=== PATIENT | male | born 1990 | race Caucasian/White ===

== ENCOUNTER 2020-05-09 11:15 | Emergency (ER) | payer BC, SELFPAY ==
[2020-05-09 11:34] VITALS: BP 142/86; PULSE 82; RESP 16; TEMP 37; O2SAT 96; BMI 32.7
--- NOTE | 2020-05-09 12:11 | ED.URI ---
HPI - URI/Sore Throat General Chief Complaint: Upper Respiratory Symptoms <Jona Christensen NP - Last Filed: 05/19/20 20:37> Stated Complaint: covid symptoms <Jona Christensen NP - Last Filed: 05/19/20 20:37> Time Seen by Provider: 05/09/20 12:11 <Jona Christensen NP - Last Filed: 05/19/20 20:37> Source: patient <Jona Christensen NP - Last Filed: 05/19/20 20:37> Mode of arrival: ambulatory <Jona Christensen NP - Last Filed: 05/19/20 20:37> Limitations: no limitations <Jona Christensen NP - Last Filed: 05/19/20 20:37> History of Present Illness HPI Narrative: Here with rhino/congestion multiple family members with similar symptoms he is here visiting family from [place] requesting COVID test. No chest pain or shortness of breath. No fever. No GI symptoms. <Jona Christensen NP - Last Filed: 05/19/20 20:37> MD elicited complaint: nasal congestion <Jona Christensen NP - Last Filed: 05/19/20 20:37> Onset (ago): day(s) <Jona Christensen NP - Last Filed: 05/19/20 20:37> Severity: mild <Jona Christensen NP - Last Filed: 05/19/20 20:37> Able to tolerate fluids by mouth: Yes <Jona Christensen NP - Last Filed: 05/19/20 20:37> Exacerbating factors: nothing <Jona Christensen NP - Last Filed: 05/19/20 20:37> Relieving factors: nothing <Jona Christensen NP - Last Filed: 05/19/20 20:37> Context: sick contacts <Jona Christensen NP - Last Filed: 05/19/20 20:37> Treatments prior to arrival: none <Jona Christensen NP - Last Filed: 05/19/20 20:37> Related Data Home Medications: Previous Rx's Medication Instructions Recorded ibuprofen 600 mg PO Q6H PRN #20 tab 05/13/20 loperamide [Imodium A-D] 2 mg PO Q4H PRN #14 cap 05/13/20 ondansetron HCl [Zofran] 4 mg PO Q6H PRN #10 tab 05/13/20 <Jona Christensen NP - Last Filed: 05/19/20 20:37> Allergies/Adverse Reactions: Allergies Allergy/AdvReac Type Severity Reaction Status Date / Time No Known Allergies Allergy Verified 05/09/20 12:12 <Jona Christensen NP - Last Filed: 05/19/20 20:37> Review of Systems Review of Systems: Constitutional: No Weight loss, No Fever, No Chills, No Night Sweats, No Fatigue, No Malaise ENT/Mouth: No Hearing loss, No Ear Pain, + Nasal Congestion, No Sinus Pain, No Hoarseness, No sore throat, No Rhinorrhea, No Swallowing Difficulty Eyes: No Eye Pain, No Swelling, No Redness, No Foreign Body, No Discharge, No Vision Changes Cardiovascular: No Chest Pain, No SOB, No Dyspnea on Exertion, No Orthopnea, No Edema, No Palpitations Respiratory: No Cough, No Sputum, No Wheezing, No Smoke Exposure, No Dyspnea Gastrointestinal: No Nausea, No Vomiting, No Diarrhea, No Constipation, No abdominal Pain, No Hematochezia, No Melena Genitourinary: No Dysuria, No Urinary Frequency, No Hematuria, No Urinary Incontinence, No Urgency, No Flank Pain, No Urinary Flow Changes, No Hesitancy Musculoskeletal: No joint pain, No Myalgias, No Joint Swelling Skin: No Skin Lesions, No rash Neuro: No Weakness, No Numbness, No Paresthesias, No Loss of Consciousness, No Dizziness, No Headache Psych: No Social Issues Heme/Lymph: No Bruising, No Bleeding,No Lymphadenopathy Endocrine: No Polyuria, No Polydipsia, No Temperature Intolerance <Jona Christensen NP - Last Filed: 05/19/20 20:37> Yes all other systems are reviewed and are negative <Jona Christensen NP - Last Filed: 05/19/20 20:37> [facility] Social History Social History: Social History Advance Directives: No Advance Directives Information Provided: No <Jona Christensen NP - Last Filed: 05/19/20 20:37> Physical Exam Vital Signs: Vital Signs: Last Vital Signs Temp 98.6 F 05/09/20 11:34 Pulse 82 05/09/20 11:34 Resp 16 05/09/20 11:34 BP 142/86 H 05/09/20 11:34 Pulse Ox 96 05/09/20 11:34 Body Mass Index 32.7 Reviewed <Jona Christensen NP - Last Filed: 05/19/20 20:37> Vital Signs: Last Vital Signs Temp 98.6 F 05/09/20 11:34 Pulse 82 05/09/20 11:34 Resp 16 05/09/20 11:34 BP 142/86 H 05/09/20 11:34 Pulse Ox 96 05/09/20 11:34 Body Mass Index 32.7 <Shola Ba MD - Last Filed: 05/31/20 13:50> Const: General: cooperative and healthy appearing; No acute distress or intoxicated appearing <Jona Christensen NP - Last Filed: 05/19/20 20:37> Nutritional Appearance: average body habitus <Jona Christensen NP - Last Filed: 05/19/20 20:37> Orientation/consciousness: patient oriented x3 <Jona Christensen NP - Last Filed: 05/19/20 20:37> HENMT: Head: Yes normal to inspection <Jona Christensen NP - Last Filed: 05/19/20 20:37> Ears: hearing grossly normal bilaterally <Jona Christensen NP - Last Filed: 05/19/20 20:37> Eyes: General: appearance normal, both eyes and all related structures <Jona Christensen NP - Last Filed: 05/19/20 20:37> Visual Chatman: normal visual chatman by confrontation <Jona Christensen NP - Last Filed: 05/19/20 20:37> Neck: Neck: Yes normal visual inspection, No positive Brudzinski's sign, No positive Kernig's sign and No tender <Jona Christensen NP - Last Filed: 05/19/20 20:37> Thyroid: Thyroid normal <Jona Christensen NP - Last Filed: 05/19/20 20:37> Chest: Chest palpation & inspection: normal inspection of the chest <Jona Christensen NP - Last Filed: 05/19/20 20:37> Resp: Effort & Inspection: normal respiratory effort <Jona Christensen DIRECTOR CHECK - Last Filed: 05/19/20 20:37> Auscultation: clear to auscultation bilaterally <Jona ChristensenOMAR eddy - Last Filed: 05/19/20 20:37> Cardio: Jugular venous distension: no JVD <Jona ChristensenOMAR eddy - Last Filed: 05/19/20 20:37> Rhythm: regular rhythm <[facility] Christensen, - Last Filed: 05/19/20 20:37> Heart sounds: S1 normal heart sound present and S2 normal heart sound present <[facility] ChristensenOMAR eddy - Last Filed: 05/19/20 20:37> : General: Yes no CVA tenderness <[facility] ChristensenOMAR eddy - Last Filed: 05/19/20 20:37> Back/Spine/Pelvis: Back: no CVA tenderness <[facility] ChristensenOMAR eddy - Last Filed: 05/19/20 20:37> Skin: General skin exam: no rashes or lesions noted <[facility] OMAR Christensen - Last Filed: 05/19/20 20:37> Neuro: General: patient oriented x3 <Jona OMAR Christensen - Last Filed: 05/19/20 20:37> Extrem: General: Yes normal to inspection <Jona ChristensenOMAR eddy - Last Filed: 05/19/20 20:37> Course Course Course Narrative: Well nontoxic appearing. States would like to be called with the results does not want to wait. <Jona OMAR Christensen - Last Filed: 05/19/20 20:37> I have reviewed the chart <Shola Ba MD - Last Filed: 05/31/20 13:50> MDM - URI/Sore Throat Lab Data Labs: Lab Results 05/09/20 Range/Units 12:17 Coronavirus (PCR) POSITIVE A (Negative) Influenza Type A (PCR) NEGATIVE (Negative) Influenza Type B (PCR) NEGATIVE (Negative) RSV RNA Qual (PCR) NEGATIVE (Negative) <Jona NealOMAR eddy - Last Filed: 05/19/20 20:37> Lab Results 05/09/20 Range/Units 12:17 Coronavirus (PCR) POSITIVE A (Negative) Influenza Type A (PCR) NEGATIVE (Negative) Influenza Type B (PCR) NEGATIVE (Negative) RSV RNA Qual (PCR) NEGATIVE (Negative) <Shola Ba MD - Last Filed: 05/31/20 13:50> Discharge Plan Discharge Clinical Impression: COVID-19 <Jona Christensen NP - Last Filed: 05/19/20 20:37> Patient Disposition: Elopement <Jona Christensen NP - Last Filed: 05/19/20 20:37> Prescriptions: No Action ondansetron HCl [Zofran] 4 mg tablet 4 mg PO Q6H PRN (Reason: nausea and vomiting) Qty: 10 RF: 0 loperamide [Imodium A-D] 2 mg capsule 2 mg PO Q4H PRN (Reason: loose stool) Qty: 14 RF: 0 ibuprofen 600 mg tablet 600 mg PO Q6H PRN (Reason: pain) Qty: 20 RF: 0 <Jona Christensen NP - Last Filed: 05/19/20 20:37> Interventions: ED Discharge Assessment Last Done: 05/09/20 12:49 <Jona Christensen NP - Last Filed: 05/19/20 20:37> Discharge Date/Time: 05/09/20 12:50 <Jona Christensen NP - Last Filed: 05/19/20 20:37>
[2020-05-09 13:07] LABS: Influenza A PCR NEGATIVE (Negative); Influenza B PCR NEGATIVE (Negative); Resp Syncy Virus RNA Qual PCR NEGATIVE (Negative); SARS COV2 PCR INHOUSE POSITIVE (Negative)
== END 2020-05-09 12:50 | disposition left against medical advice (07) ==
PROVIDERS: Nurse Practitioner Primary Care; Emergency Provider Emergency Medicine
DX: U07.1 COVID-19 (principal)
CPT/HCPCS: 0241U; 36415; 99283

== ENCOUNTER 2020-05-13 12:39 | Emergency (ER) | payer BC, SELFPAY ==
--- NOTE | ~2020-05-13 | XR_ITS ---
EXAMINATION: XR CHEST CLINICAL INFORMATION: Cough. COMPARISON: None TECHNIQUE: Frontal view of the chest was obtained. FINDINGS: No significant abnormality is noted involving the heart, lungs, mediastinum, bony thorax or soft tissues. XR/XR chest 1V IMPRESSION: Unremarkable chest examination.
[2020-05-13 13:10] VITALS: BP 134/79; PULSE 53; RESP 16; TEMP 37.7; O2SAT 99; BMI 32.1
--- NOTE | 2020-05-13 13:39 | ED.GENADULT ---
HPI - General Adult General Chief complaint: Upper Respiratory Symptoms <CASEY Ordaz Last Filed: 05/18/20 10:12> Stated complaint: POS COVID SYMPTONS <CASEY Ordaz Last Filed: 05/18/20 10:12> Time Seen by Provider: 05/13/20 13:39 <CASEY Ordaz Last Filed: 05/18/20 10:12> History of Present Illness HPI narrative: Patient tested positive for COVID 5 days ago and complains of continued cough body aches fatigue nausea with some episodes of vomiting although he can tolerate liquids today and some diarrhea, no chest pain no shortness of breath no abdominal pain no fever no chills <CASEY Ordaz Last Filed: 05/18/20 10:12> Related Data Home medications: Previous Rx's Medication Instructions Recorded ibuprofen 600 mg PO Q6H PRN #20 tab 05/13/20 loperamide [Imodium A-D] 2 mg PO Q4H PRN #14 cap 05/13/20 ondansetron HCl [Zofran] 4 mg PO Q6H PRN #10 tab 05/13/20 <CASEY Ordaz Last Filed: 05/18/20 10:12> Allergies/adverse reactions: Allergies Allergy/AdvReac Type Severity Reaction Status Date / Time No Known Allergies Allergy Verified 05/09/20 12:12 <CASEY Ordaz Last Filed: 05/18/20 10:12> Review of Systems Review of Systems: Positive for cough body aches nausea and diarrhea Negatives are no fever no chills no dizziness no confusion no weakness no headache no neck pain no sore throat no difficulty breathing or swallowing no chest pain no shortness of breath no palpitations no abdominal pain no dysuria no trouble with urination no rash no numbness or weakness <CASEY Ordaz Last Filed: 05/18/20 10:12> [facility] Past Medical History Source: nursing notes reviewed <CASEY Ordaz Last Filed: 05/18/20 10:12> Social History Social History: Social History Advance Directives: No Advance Directives Information Provided: No <CASEY Ordaz Last Filed: 05/18/20 10:12> Physical Exam Vital Signs: Vital Signs: Last Vital Signs Temp 99.8 F 05/13/20 13:10 Pulse 53 05/13/20 13:10 Resp 16 05/13/20 13:10 BP 134/79 05/13/20 13:10 Pulse Ox 99 05/13/20 13:10 Body Mass Index 32.1 <CASEY Ordaz - Last Filed: 05/18/20 10:12> Vital Signs: Last Vital Signs Temp 99.8 F 05/13/20 13:10 Pulse 53 05/13/20 13:10 Resp 16 05/13/20 13:10 BP 134/79 05/13/20 13:10 Pulse Ox 99 05/13/20 13:10 Body Mass Index 32.1 <Shola Ba MD - Last Filed: 05/31/20 13:42> General appearance no distress, relaxed and cooperative The eyes are clear without discharge The pharynx is clear with no redness or exudate, mucous membranes are moist Voice is normal Neck is supple Chest is clear to auscultation bilaterally with full symmetric breath sounds Heart rate regular no murmur Abdomen soft nontender Skin no rash Extremities full range of motion x4 Neuro no focal deficit <CASEY Ordaz - Last Filed: 05/18/20 10:12> Course Course Course Narrative: COVID positive patient with ongoing symptoms has negative chest x-ray, normal vitals normal exam and is well appearing and is discharged home with symptomatic relief <CASEY Ordaz - Last Filed: 05/18/20 10:12> I have reviewed the chart <Shola Ba MD - Last Filed: 05/31/20 13:42> Discharge Plan Discharge Clinical Impression: COVID-19 <CASEY Ordaz - Last Filed: 05/18/20 10:12> Patient Disposition: Home, Self-Care <CASEY Ordaz - Last Filed: 05/18/20 10:12> Additional Instructions: Chest x-ray was normal We sent prescriptions for nausea medicine, diarrhea medicine and ibuprofen for body aches and fever if needed Return any time for any concerns or worse condition <CASEY Ordaz - Last Filed: 05/18/20 10:12> Prescriptions: New ondansetron HCl [Zofran] 4 mg tablet 4 mg PO Q6H PRN (Reason: nausea and vomiting) Qty: 10 RF: 0 loperamide [Imodium A-D] 2 mg capsule 2 mg PO Q4H PRN (Reason: loose stool) Qty: 14 RF: 0 ibuprofen 600 mg tablet 600 mg PO Q6H PRN (Reason: pain) Qty: 20 RF: 0 <CASEY Ordaz - Last Filed: 05/18/20 10:12> Stand Alone Forms: Work/School Release <CASEY Ordaz - Last Filed: 05/18/20 10:12> Interventions: ED Discharge Assessment Last Done: 05/13/20 14:45 <CASEY Ordaz - Last Filed: 05/18/20 10:12> Discharge Date/Time: 05/13/20 14:45 <CASEY Ordaz - Last Filed: 05/18/20 10:12>
--- NOTE | 2020-05-13 14:40 | PC.NURSE ---
NO NAUSEA OR VOMITING AT THIS TIME, GOOD SKIN TURGOR, NO DIFF BREATHING.
== END 2020-05-13 14:45 | disposition home or self-care (01) ==
PROVIDERS: Emergency Provider Emergency Medicine
DX: U07.1 COVID-19 (principal)
CPT/HCPCS: 71045; 99283